=== PATIENT | female | born 1975 | race Caucasian/White ===

== ENCOUNTER 2021-12-31 20:24 | Emergency (ER) | payer MEDICAID ==
[~2021-12-31] VITALS: Ht 160 cm; Wt 92.7 kg
[2021-12-31] MEDS ORDERED: IBU-200200 MG PO (21:11)
[2021-12-31] MEDS ORDERED: CYCLOBENZAPRINE10 MG PO (21:11)
[2021-12-31] MEDS ORDERED: BUTALB-ACETAMI1 EAC2 PO (22:31)
== END 2021-12-31 22:54 | disposition home or self-care (01) ==
LOC: ED 20:24
DX: R51.9 Headache, unspecified (principal); D64.9 Anemia, unspecified; Z88.2 Allergy status to sulfonamides; Z88.1 Allergy status to other antibiotic agents; Z79.899 Other long term (current) drug therapy
CPT/HCPCS: 70450; 96372; 99284-25; J1885; J2270